=== PATIENT | female | born 1990 | race Caucasian/White ===

== ENCOUNTER 2017-03-07 18:43 | Emergency (ER) | payer OTHER, MEDICAID ==
[2017-03-07 19:07] VITALS: BP 121/71
[2017-03-07] MEDS ORDERED: Acetaminophen/HYDROcodone 325-5 MG Tab PO ONE ×2 (20:10→20:21)
[2017-03-07] MEDS ORDERED: Sulfamethoxazole/Trimethoprim 800-160 MG Tab PO ONE (20:11)
--- NOTE | 2017-03-07 20:46 | EDM.PDOC ---
ED HPI GENERAL MEDICAL PROBLEM - General Chief Complaint: ENT Problem Stated Complaint: TOOTH PAIN Time Seen by Provider: 03/07/17 18:59 Source of Information: Reports: Patient, Family History Limitations: Reports: No Limitations - History of Present Illness INITIAL COMMENTS - FREE TEXT/NARRATIVE: 26 y.o.w.f came to the ed due to #15 toothache for 1 day. No trauma. No other acute medical issues. 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 Left Upper Tooth/Teeth Pain Score (Numeric/FACES): 10 - Related Data Allergies Allergy/AdvReac Type Severity Reaction Status Date / Time ondansetron Allergy Delusions Verified 03/07/17 19:09 [From Zofran (as hydrochloride)] Penicillins Allergy Hives Verified 03/07/17 19:07 Home Meds: Home Meds FLUoxetine HCl [Fluoxetine HCl] 20 mg PO DAILY 12/31/14 [History] Amoxicillin/Potassium Clav [Augmentin 875-125 Tablet] 1 each PO BID #20 tablet 03/07/17 [Rx] Past Medical History Genitourinary History: Reports: Other (See Below) Other Genitourinary History: hx of kidney infections 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: , Other (See Below) Other OB/BYN History: ovarion cysts Psychiatric History: Reports: Depression Social & Family History - Tobacco Use Smoking Status *Q: Current Every Day Smoker Years of Tobacco use: 16 Packs/Tins Daily: 1 Used Tobacco, but Quit: No Month Tobacco Last Used: MAR Second Hand Smoke Exposure: No - Caffeine Use Caffeine Use: Reports: Coffee - Alcohol Use Days Per Week of Alcohol Use: 0 - Recreational Drug Use Recreational Drug Use: No ED ROS ENT - Review of Systems Review Of Systems: See Below Constitutional: Reports: No Symptoms HEENT: Reports: Other (dental pain) Respiratory: Reports: No Symptoms Cardiovascular: Reports: No Symptoms Endocrine: Reports: No Symptoms GI/Abdominal: Reports: No Symptoms : Reports: No Symptoms Musculoskeletal: Reports: No Symptoms Skin: Reports: No Symptoms Neurological: Reports: No Symptoms Psychiatric: Reports: No Symptoms Hematologic/Lymphatic: Reports: No Symptoms Immunologic: Reports: No Symptoms ED EXAM, ENT - Physical Exam Exam: See Below Exam Limited By: No Limitations General Appearance: Alert, WD/WN, Mild Distress Eye Exam: Bilateral Eye: Normal Inspection Ears: Normal External Exam, Normal Canal Nose: Normal Inspection, Normal Mucousa Mouth/Throat: Dental Pain, Dental Tenderness, Other (gingivitis) Head: Atraumatic, Normocephalic Neck: Normal Inspection, Supple Respiratory/Chest: No Respiratory Distress Cardiovascular: Normal Peripheral Pulses GI/Abdominal: Normal Bowel Sounds (Female) Exam: Deferred Rectal (Female) Exam: Deferred Back: Normal Inspection, Full Range of Motion Extremities: Normal Inspection, Normal Range of Motion, Non-Tender, No Pedal Edema Neurological: Alert, Oriented, CN II-XII Intact, Normal Cognition, Normal Gait, Normal Reflexes, No Motor/Sensory Deficits Course - Vital Signs Text/Narrative:: 26 y.o.w.f came to the ed due to #15 toothache for 1 day. No trauma. No other acute medical issues., Motrin is not helping PE: Toothache, gingivitis. Impression: Toothache, gingivitis Tx: Vicodin, Bactrim Reexam: Improved Plan? D/C with instructions Last Recorded V/S: Last Vital Signs Temp 36.3 C 03/07/17 18:59 Pulse 117 H 03/07/17 18:59 Resp 17 03/07/17 18:59 BP 121/71 03/07/17 18:59 Pulse Ox 100 03/07/17 18:59 - Orders/Labs/Meds Meds: Medications Discontinued Medications Generic Name Dose Route Start Last Admin Trade Name Virgilio PRN Reason Stop Dose Admin Hydrocodone Bitart/Acetaminophen 2 tab 03/07/17 20:10 03/07/17 20:22 [place] 325-5 Mg PO 03/07/17 20:11 2 tab ONETIME ONE Administration Trimethoprim/Sulfamethoxazole 1 tab 03/07/17 20:11 03/07/17 20:22 Septra Ds PO 03/07/17 20:12 1 tab ONETIME ONE Administration Departure - Departure Time of Disposition: 20:42 Disposition: Home, Self-Care 01 Condition: Good Clinical Impression: Toothache, Acute gingivitis - Discharge Information Prescriptions: Amoxicillin/Potassium Clav [Augmentin 875-125 Tablet] 1 each PO BID #20 tablet Referrals: Torres Green MD [Primary Care Provider] - Forms: ED Department Discharge Additional Instructions: Please take the meds as recommended, please f/u, please come back if your symptoms get worse acutely
== END 2017-03-07 20:45 | disposition home or self-care (01) ==
LOC: FB.ED 18:43
DX: K05.00 Acute gingivitis, plaque induced (principal); F17.210 Nicotine dependence, cigarettes, uncomplicated; F32.9 Major depressive disorder, single episode, unspecified; Z88.0 Allergy status to penicillin; Z88.8 Allergy status to other drugs, medicaments and biological substances; Z79.899 Other long term (current) drug therapy
CPT/HCPCS: 99282; A9270

== ENCOUNTER 2017-03-08 13:16 | Emergency (ER) | payer OTHER, MEDICAID ==
[2017-03-08] MEDS ORDERED: Acetaminophen/oxyCODONE 325-5 MG Tab PO STA (13:29)
[2017-03-08] MEDS ORDERED: Acetaminophen/oxyCODONE 325-5 MG Tab PO ONE (14:07)
--- NOTE | 2017-03-08 14:10 | EDM.PDOC ---
ED HPI GENERAL MEDICAL PROBLEM - General Chief Complaint: General Stated Complaint: TOOTH PAIN Time Seen by Provider: 03/08/17 13:32 Source of Information: Reports: Patient, Family History Limitations: Reports: No Limitations - History of Present Illness INITIAL COMMENTS - FREE TEXT/NARRATIVE: 26 y.o.w f come to the ed the second time due to toothache. Pt was seen by myself yesterday. She was diagnosed with toothache and gingivitis. She says, her meds would not help. She can not tolerate cold and hot foot. No other acute medical issues. 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, Other Medication(s) (norco) Tooth/Teeth Pain Score (Numeric/FACES): 10 - Related Data Allergies Allergy/AdvReac Type Severity Reaction Status Date / Time ondansetron Allergy Delusions Verified 03/08/17 13:28 [From Zofran (as hydrochloride)] Penicillins Allergy Hives Verified 03/08/17 13:28 Home Meds: Home Meds FLUoxetine HCl [Fluoxetine HCl] 20 mg PO DAILY 12/31/14 [History] Amoxicillin/Potassium Clav [Augmentin 875-125 Tablet] 1 each PO BID #20 tablet 03/07/17 [Rx] Past Medical History - Past Health History Medical/Surgical History: Denies Medical/Surgical History Genitourinary History: Reports: Other (See Below) Other Genitourinary History: hx of kidney infections 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: , 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 (See Below) Other OB/BYN History: ovarion cysts Psychiatric History: Reports: Depression Social & Family History - Tobacco Use Smoking Status *Q: Current Every Day Smoker Years of Tobacco use: 11 Packs/Tins Daily: 1 Used Tobacco, but Quit: No Month Tobacco Last Used: OCT Second Hand Smoke Exposure: No - Caffeine Use Caffeine Use: Reports: Coffee - Alcohol Use Days Per Week of Alcohol Use: 0 - Recreational Drug Use Recreational Drug Use: No ED ROS GENERAL - Review of Systems Review Of Systems: See Below Constitutional: Reports: No Symptoms HEENT: Reports: Dental Pain Respiratory: Reports: No Symptoms Cardiovascular: Reports: No Symptoms Endocrine: Reports: No Symptoms GI/Abdominal: Reports: No Symptoms : Reports: No Symptoms Musculoskeletal: Reports: No Symptoms Skin: Reports: No Symptoms Neurological: Reports: No Symptoms Psychiatric: Reports: No Symptoms Hematologic/Lymphatic: Reports: No Symptoms Immunologic: Reports: No Symptoms ED EXAM, GENERAL - Physical Exam Exam: See Below Exam Limited By: No Limitations General Appearance: Alert, WD/WN, No Apparent Distress, Mild Distress, Obese Eye Exam: Bilateral Eye: Normal Inspection Ears: Normal External Exam Ear Exam: Bilateral Ear: Auricle Normal Nose: Normal Inspection Throat/Mouth: Other (decayed tooth #15) Head: Atraumatic, Normocephalic Neck: Normal Inspection, Supple, Non-Tender Respiratory/Chest: No Respiratory Distress, Lungs Clear Cardiovascular: Normal Peripheral Pulses, Regular Rate, Rhythm GI/Abdominal: Normal Bowel Sounds, Soft (Female) Exam: Deferred Rectal (Female) Exam: Deferred Back Exam: Normal Inspection Extremities: Normal Inspection Neurological: Alert, Oriented, CN II-XII Intact, Normal Cognition Psychiatric: Normal Affect, Normal Mood Skin Exam: Warm, Dry, Intact, Normal Color, No Rash Lymphatic: No Adenopathy Course - Vital Signs Text/Narrative:: 26 y.o.w f come to the ed the second time due to toothache. Pt was seen by myself yesterday. She was diagnosed with toothache and gingivitis. She says, her meds would not help. She can not tolerate cold and hot foot. No other acute medical issues. PE: decayed tooth #15 Impression: decayed tooth #15 Tx: Percocet Reexam: Improved Plan: D/C with instructions Last Recorded V/S: Last Vital Signs Temp 36.8 C 03/08/17 13:32 Pulse 83 03/08/17 14:14 Resp 20 03/08/17 13:32 BP 130/85 03/08/17 14:14 Pulse Ox 98 03/08/17 13:32 - Orders/Labs/Meds Meds: Medications Discontinued Medications Generic Name Dose Route Start Last Admin Trade Name Freq PRN Reason Stop Dose Admin Oxycodone/Acetaminophen 1 tab 03/08/17 13:29 03/08/17 13:40 Percocet 325-5 Mg PO 03/08/17 13:30 1 tab ONETIME STA Administration Departure - Departure Time of Disposition: 14:07 Disposition: Home, Self-Care 01 Condition: Good Clinical Impression: Toothache, Gingivitis - Discharge Information Referrals: Torres Green MD [Primary Care Provider] - Forms: ED Department Discharge Additional Instructions: Please take the pain meds as recommended, please see a dentist a.s.a.p, please come back i f your symptoms get worse acutely.
[2017-03-08 14:14] VITALS: BP 130/85
== END 2017-03-08 14:15 | disposition home or self-care (01) ==
LOC: FB.ED 13:16
DX: K05.10 Chronic gingivitis, plaque induced (principal); K08.89 Other specified disorders of teeth and supporting structures; F32.9 Major depressive disorder, single episode, unspecified; F17.210 Nicotine dependence, cigarettes, uncomplicated; Z88.8 Allergy status to other drugs, medicaments and biological substances; Z88.0 Allergy status to penicillin
CPT/HCPCS: 99282; A9270

== ENCOUNTER 2018-09-19 00:42 | Emergency (ER) | payer OTHER, MEDICAID ==
[2018-09-19] MEDS ORDERED: Ketorolac 30 MG/ML SDV ONE (01:04)
[2018-09-19] MEDS ORDERED: Ketorolac 30 MG/ML SDV IM ONE ×2 (01:05→03:33)
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
[2018-09-19 04:01] VITALS: BP 128/65
== END 2018-09-19 03:55 | disposition home or self-care (01) ==
LOC: FB.ED 00:42
DX: S20.20XA Contusion of thorax, unspecified, initial encounter (principal); Z88.8 Allergy status to other drugs, medicaments and biological substances; Z88.1 Allergy status to other antibiotic agents; Z79.899 Other long term (current) drug therapy; V86.99XA Unspecified occupant of other special all-terrain or other off-road motor vehicle injured in nontraffic accident, initial encounter
CPT/HCPCS: 71101; 72100; 81001; 96372; 99285; J1885

== ENCOUNTER 2019-01-13 15:22 | Emergency (ER) | payer OTHER ==
[2019-01-13] MEDS ORDERED: Diphtheria,Pertussis(Acell),Tetanus Vaccine 0.5 ML SDV IM ONE (15:29)
[2019-01-13] MEDS ORDERED: Sulfamethoxazole/Trimethoprim 800-160 MG Tab PO ONE (15:29)
--- NOTE | 2019-01-13 16:20 | EDM.PDOC ---
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 Pt noticed a minor lesion at her palm of her right hand, swelling if her right hand and discomfort at her right elbow when moved. There was now loss of function. No N/V/Cp, no dizziness or any other acute med issues. BP 126/67 RR 18 Pulse ox 98% on RA pulse 98 Temp 36.8 Onset Date: 01/13/19 Onset Time: 14:30 Duration: Hour(s): Location: Reports: Upper Extremity, Right Quality: Reports: Ache, Dull, Pressure Severity: Mild Improves with: Reports: Rest Worsens with: Reports: Movement Context: Reports: Trauma Associated Symptoms: Reports: No Other Symptoms RT ELBOW Pain Score (Numeric/FACES): 6 - Related Data Allergies Allergy/AdvReac Type Severity Reaction Status Date / Time ondansetron Allergy Delusions Verified 01/13/19 15:35 [From Zofran (as hydrochloride)] Penicillins Allergy Hives Verified 01/13/19 15:35 Home Meds: Home Meds hydrOXYzine pamoate [Hydroxyzine Pamoate] 25 mg PO ASDIRECTED PRN 01/19/18 [ History] Venlafaxine HCl [Venlafaxine ER] 75 mg PO DAILY 09/19/18 [History] Sulfamethoxazole/Trimethoprim [Bactrim Ds Tablet] 1 each PO BID #20 tablet 01/13 [Rx] Past Medical History - Past Health History Medical/Surgical History: Denies Medical/Surgical History Respiratory History: Reports: Asthma Genitourinary History: Reports: Other (See Below) Other Genitourinary History: Hx of kidney infections. 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 Psychiatric History: Reports: Anxiety, Depression - Past Surgical History Other HEENT Surgeries/Procedures: [place] teeth extraction. Social & Family History - Caffeine Use Caffeine Use: Reports: Coffee Review of Systems - Review of Systems Review Of Systems: See Below Constitutional: Reports: No Symptoms Eyes: Reports: No Symptoms Ears: Reports: No Symptoms Nose: Reports: No Symptoms Mouth/Throat: Reports: No Symptoms Respiratory: Reports: No Symptoms Cardiovascular: Reports: No Symptoms GI/Abdominal: Reports: No Symptoms Genitourinary: Reports: No Symptoms Musculoskeletal: Reports: Arm Pain (elbow pain), Hand Pain (right) Skin: Reports: No Symptoms Neurological: Reports: Numbness (right arm/hand) Psychiatric: Reports: No Symptoms ED EXAM, GENERAL - Physical Exam Exam: See Below Exam Limited By: No Limitations General Appearance: Alert, WD/WN, Mild Distress Eye Exam: Bilateral Eye: Normal Inspection Ears: Normal External Exam Ear Exam: Bilateral Ear: Auricle Normal Nose: Normal Inspection, Normal Mucosa Throat/Mouth: Normal Inspection, Normal Lips, Normal Voice, No Airway Compromise Head: Atraumatic, Normocephalic Neck: Normal Inspection, Supple, Non-Tender, Full Range of Motion Respiratory/Chest: No Respiratory Distress, Lungs Clear, Normal Breath Sounds, Chest Non-Tender Cardiovascular: Normal Peripheral Pulses, Regular Rate, Rhythm, No Edema, No JVD , No Murmur Peripheral Pulses: 2+: Brachial (L) GI/Abdominal: Normal Bowel Sounds, Soft, Non-Tender, No Organomegaly, No Mass, Pelvis Stable (Female) Exam: Deferred Rectal (Female) Exam: Deferred Back Exam: Normal Inspection, Full Range of Motion Extremities: Normal Inspection, Limited Range of Motion (due to discomfort rigt hand/elbow) Neurological: Alert, Oriented, CN II-XII Intact, Normal Cognition Psychiatric: Normal Affect, Normal Mood Skin Exam: Warm, Dry, Intact, Normal Color, No Rash Lymphatic: No Adenopathy Course - Vital Signs Text/Narrative:: 28 y.o.w.f 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 Pt noticed a minor lesion at her palm of her right hand, swelling if her right hand and discomfort at her right elbow when moved. There was now loss of function. No N/V/Cp, no dizziness or any other acute med issues. BP 126/67 RR 18 Pulse ox 98% on RA pulse 98 Temp 36.8 PE: WNWD W F with right arm/hand pain Imaging: Right elbow/hand: NAD Impression: Abrasion right hand, volar aspect. Neurapraxia ulnar nerve. musculoskeletal pain right forearm Tx: Ice, armsling, Wound care (Neosporin) Reexam: Improved Plan: D/C with instructions Last Recorded V/S: Last Vital Signs Temp 36.7 C 01/13/19 17:19 Pulse 86 01/13/19 17:19 Resp 17 01/13/19 17:19 BP 122/79 01/13/19 17:19 Pulse Ox 99 01/13/19 17:19 - Orders/Labs/Meds Orders: Active Orders 24 hr Category Date Time Status Vaccines to be Administered [RC] PER UNIT ROUTINE Care 01/13/19 15:31 Active Elbow Min 3V Rt [CR] Stat Exams 01/13/19 15:29 Taken Hand Comp Min 3V Rt [CR] Stat Exams 01/13/19 15:29 Taken Meds: Medications Discontinued Medications Generic Name Dose Route Start Last Admin Trade Name Freq PRN Reason Stop Dose Admin Diphtheria/Tetanus/Acell Pertussis 0.5 ml 01/13/19 15:29 01/13/19 15:43 Adacel IM 01/13/19 15:30 0.5 ml .ONCE ONE Administration Trimethoprim/Sulfamethoxazole 1 tab 01/13/19 15:29 01/13/19 15:42 Septra Ds PO 01/13/19 15:30 1 tab ONETIME ONE Administration Departure - Departure Time of Disposition: 16:57 Disposition: Home, Self-Care 01 Condition: Good 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 Qualifiers: Encounter type: initial encounter Qualified Code(s): S54.01XA - Injury of ulnar nerve at forearm level, right arm, initial encounter Abrasion hand Qualifiers: Encounter type: initial encounter Laterality: right Qualified Code(s): S60.511A - Abrasion of right hand, initial encounter - Discharge Information Prescriptions: Sulfamethoxazole/Trimethoprim [Bactrim Ds Tablet] 1 each PO BID #20 tablet Instructions: Abrasion, [id number] Referrals: Torres Green MD [Primary Care Provider] - Forms: ED Return to Work/School Form Additional Instructions: Please take Motrin for pain, use arm sling for comfort. please apply Neosporine to wound twice daily for 5 days. Wound check in 2-3 days. Please come back if your symptoms get worse acutely - My Orders Last 24 Hours: My Active Orders 01/13/19 15:29 Elbow Min 3V Rt [CR] Stat Hand Comp Min 3V Rt [CR] Stat 01/13/19 15:31 Vaccines to be Administered [RC] PER UNIT ROUTINE - Assessment/Plan Last 24 Hours: My Active Orders 01/13/19 15:29 Elbow Min 3V Rt [CR] Stat Hand Comp Min 3V Rt [CR] Stat 01/13/19 15:31 Vaccines to be Administered [RC] PER UNIT ROUTINE
[2019-01-13 18:32] VITALS: BP 122/79; PULSE 86
== END 2019-01-13 17:30 | disposition home or self-care (01) ==
LOC: FB.ED 15:22
DX: S54.01XA Injury of ulnar nerve at forearm level, right arm, initial encounter (principal); S60.511A Abrasion of right hand, initial encounter; Z23 Encounter for immunization; F41.9 Anxiety disorder, unspecified; F32.9 Major depressive disorder, single episode, unspecified; J45.909 Unspecified asthma, uncomplicated; Z88.0 Allergy status to penicillin; Z88.8 Allergy status to other drugs, medicaments and biological substances; W23.1XXA Caught, crushed, jammed, or pinched between stationary objects, initial encounter
CPT/HCPCS: 73080; 73130; 90471; 90715; 99000; 99283; A9270